=== PATIENT | female | born 1990 | race Caucasian/White ===

== ENCOUNTER 2020-11-02 16:15 | Emergency (ER) | payer MEDICAID ==
[~2020-11-02] VITALS: Ht 152.4 cm; Wt 70.3 kg
[2020-11-02 16:19] VITALS: BP 150/93
--- NOTE | 2020-11-02 16:20 | NUR ---
30Y F c/c new onset feeling dizzy, imbalanced and blurry vision earlier at work. Reports dizziness has resolved but blurry vision remains and "a little light-headed". Denies chest pain, n/v/d, flashing lights, floaters, painful eye movement, chest pain, SOB. Denies gestational HTN/DM. PMH: denies NKA RX: Folic and iron.
--- NOTE | 2020-11-02 16:51 | NUR ---
DR. REYES AT BEDSIDE EXAMINING PT
--- NOTE | 2020-11-02 17:06 | NUR ---
UA GIVEN TO COSMETOLOGY INSTRUCTOR
--- NOTE | 2020-11-02 17:08 | NUR ---
EKG AT BEDSIDE
[2020-11-02] MEDS ORDERED: DOPPLER MC ONE (17:12)
[2020-11-02 17:32] LABS: APPEARANCE,URINE CLEAR (CLEAR); BILIRUBIN,URINE NEGATIVE (NEGATIVE); BLOOD, URINE NEGATIVE (NEGATIVE); COLOR,URINE YELLOW (YELLOW); LEUKOCYTE ESTERASE ,URINE 2+ (NEGATIVE); NITRITE, URINE NEGATIVE (NEGATIVE); UGLUCOSE NEGATIVE (NEGATIVE)
[2020-11-02 17:32] LABS: BASOPHILS # (AUTO) 0.1 K/uL (0.00-0.22); BASOPHILS % (AUTO) 0.8 % (0.0-2.0); EOSINOPHILS # (AUTO) 0.1 K/uL (0-0.4); EOSINOPHILS % (AUTO) 0.7 % (0.0-4.0); HEMATOCRIT 33.3 % (36-48); HEMOGLOBIN 11.3 g/dL (12.0-16.0); LYMPHOCYTES # (AUTO) 2.1 K/uL (2.5-16.5); LYMPHOCYTES % (AUTO) 22.5 % (20.5-51.1); MEAN CORPUSCULAR HEMOGLOBIN 31 pg (27-31); MEAN CORPUSCULAR HGB CONC 34 g/dL (33-37); MEAN CORPUSCULAR VOLUME 90.9 fL (80-94); MONOCYTES # (AUTO) 0.6 K/uL (0.8-1.0); MONOCYTES % (AUTO) 6.3 % (1.7-9.3); NEUTROPHILS # (AUTO) 6.6 K/uL (1.8-7.7); NEUTROPHILS % (AUTO) 69.7 % (42.2-75.2); PLATELET COUNT (AUTO) 338 K/uL (140-450); RED BLOOD CELL COUNT(AUTO) 3.66 MIL/uL (4.20-5.40); WHITE BLOOD COUNT (AUTO) 9.5 K/uL (4.8-10.8)
[2020-11-02 17:49] LABS: ALBUMIN 2.9 g/dL (3.4-5.0); ANION GAP 11.2 (8-16); CARBON DIOXIDE 23.6 mmol/L (21-32); CREATININE 0.5 mg/dL (0.6-1.3); POTASSIUM 3.8 mmol/L (3.5-5.1); TOTAL BILIRUBIN 0.3 mg/dL (0.0-1.0)
[2020-11-02 17:53] LABS: PROTHROMBIN TIME 9.2 secs (10.8-13.4)
--- NOTE | 2020-11-02 18:00 | NUR ---
Pt comfortably lying on lowest locked bed x1 rail, VSS, even and unlabored breathing noted. Pulse ox and O2 monitored.
[2020-11-02 18:20] LABS: RBC,URINE 0-5 /HPF (0-5)
[2020-11-02] MEDS ORDERED: NITR100C7 PO (18:27)
[2020-11-02 18:31] VITALS: BP 114/77
--- NOTE | 2020-11-02 18:31 | NUR ---
Patient discharged with v/s stable. Written and verbal after care instructions given and explained. Patient verbalized understanding. Ambulatory with steady gait. All questions addressed prior to discharge. Advised to follow up with PMD.
== END 2020-11-02 18:31 | disposition home or self-care (01) ==
LOC: MED 16:15
DX: O26.892 Other specified pregnancy related conditions, second trimester (principal); O98.912 Unspecified maternal infectious and parasitic disease complicating pregnancy, second trimester; R82.71 Bacteriuria; R42 Dizziness and giddiness; H53.8 Other visual disturbances; Z3A.25 25 weeks gestation of pregnancy
CPT/HCPCS: 36415; 80053; 81001; 81025; 84550; 85025; 85610; 85730; 87086; 93005; 99284

== ENCOUNTER 2021-01-31 17:14 | Inpatient (IN) | payer MEDICAID ==
[~2021-01-31] VITALS: Ht 152.4 cm; Wt 77.6 kg
[~2021-01-31 17:14] MED LIST: NITR100C7 PO
[2021-01-31] MEDS ORDERED: PRETAB PO (17:32)
[2021-01-31] MEDS ORDERED: NALBUPHINE 10 MG/ML AMP IVP PRN (17:35)
[2021-01-31] MEDS ORDERED: LACTATED RINGERS 500 ML IV ONE (17:35)
[2021-01-31] MEDS ORDERED: PROMETHAZINE 25 MG/ML VIAL IVP PRN (17:35)
[2021-01-31 18:34] LABS: BASOPHILS # (AUTO) 0.1 K/uL (0.00-0.22); BASOPHILS % (AUTO) 0.6 % (0.0-2.0); EOSINOPHILS # (AUTO) 0.1 K/uL (0-0.4); EOSINOPHILS % (AUTO) 1.8 % (0.0-4.0); HEMOGLOBIN 12.4 g/dL (12.0-16.0); LYMPHOCYTES # (AUTO) 2.4 K/uL (2.5-16.5); LYMPHOCYTES % (AUTO) 29.4 % (20.5-51.1); MEAN CORPUSCULAR HEMOGLOBIN 32 pg (27-31); MEAN CORPUSCULAR HGB CONC 34 g/dL (33-37); MEAN CORPUSCULAR VOLUME 94.8 fL (80-94); MONOCYTES # (AUTO) 0.6 K/uL (0.8-1.0); MONOCYTES % (AUTO) 7.2 % (1.7-9.3); NEUTROPHILS # (AUTO) 5.1 K/uL (1.8-7.7); PLATELET COUNT (AUTO) 274 K/uL (140-450); RED CELL DISTRIBUTION WIDTH 15.3 % (11.6-13.7); WHITE BLOOD COUNT (AUTO) 8.3 K/uL (4.8-10.8)
[2021-01-31 18:42] LABS: BILIRUBIN,URINE NEGATIVE (NEGATIVE); BLOOD, URINE TRACE-I (NEGATIVE); LEUKOCYTE ESTERASE ,URINE 3+ (NEGATIVE); NITRITE, URINE NEGATIVE (NEGATIVE); UGLUCOSE NEGATIVE (NEGATIVE)
[2021-01-31 18:44] LABS: APPEARANCE,URINE HAZY (CLEAR); COLOR,URINE STRAW (YELLOW)
[2021-01-31 18:55] VITALS: BP 137/95
[2021-01-31 18:59] LABS: PROTHROMBIN TIME 8.8 secs (10.8-13.4)
[2021-01-31 19:02] LABS: ALBUMIN 2.8 g/dL (3.4-5.0); ANION GAP 15.9 (8-16); CARBON DIOXIDE 20.6 mmol/L (21-32); CREATININE 0.7 mg/dL (0.6-1.3); POTASSIUM 3.5 mmol/L (3.5-5.1); TOTAL BILIRUBIN 0.3 mg/dL (0.0-1.0)
[2021-01-31 19:21] LABS: URINE TOTAL PROTEIN 21.9 mg/dL (0-12)
[2021-01-31 19:32] LABS: WBC,URINE 16-25 (MOD) /HPF (0-5)
[2021-01-31] MEDS: LACTATED RINGERS 1,000 ML IV SCH (19:53)
[2021-01-31] MEDS ORDERED: MISOPROSTOL 25 MCG TAB VG PRN (19:55)
[2021-01-31] MEDS ORDERED: OXYTOCIN 20 UNITS in LACTATED RINGERS 1,000 ML IV SCH (19:55)
[2021-01-31] MEDS ORDERED: MISOPROSTOL 25 MCG TAB ONE (20:07)
[2021-02-01] MEDS: LACTATED RINGERS 1,000 ML IV SCH ×3 (03:47→12:26)
--- NOTE | 2021-02-01 08:31 | NUR ---
PATIENT HAS BEEN SCREENED AND CATEGORIZED LOW NUTRITION RISK. PATIENT WILL BE SEEN WITHIN 7 DAYS OF ADMISSION. 02/07/[address]
[2021-02-01] MEDS ORDERED: OXYTOCIN 20 UNITS/LR PREMIX 1,000 ML IV ONE (10:09)
[2021-02-01] MEDS ORDERED: ACETAMINOPHEN 325 MG TAB PO PRN (15:25)
[2021-02-01] MEDS ORDERED: ACETAMINOPHEN 325 MG TAB ONE (15:26)
[2021-02-01] MEDS ORDERED: AMPICILLIN 2,000 MG VIAL ONE (15:27)
[2021-02-01] MEDS ORDERED: AMPICILLIN 2,000 MG in NACL 0.9% MINI-BAG PLUS 100 ML IV SCH (16:00)
[2021-02-01] MEDS ORDERED: AMPICILLIN 1,000 MG in NACL 0.9% MINI-BAG PLUS 50 ML IV SCH (19:00)
[2021-02-01] MEDS ORDERED: HYDROcodone/APAP 5/325 MG 1 TAB TAB PO PRN (20:20)
[2021-02-01] MEDS ORDERED: TEMAZEPAM 15 MG CAP PO PRN (20:20)
[2021-02-01] MEDS ORDERED: oxyCODONE/APAP 5/325 MG 1 TAB TAB PO PRN (20:20)
[2021-02-01] MEDS ORDERED: BENZOCAINE/MENTHOL 20%-0.5% 60 GM CAN TP PRN (20:20)
[2021-02-01] MEDS ORDERED: OXYTOCIN 10 UNITS/ML VIAL IM PRN (20:20)
[2021-02-01] MEDS ORDERED: DOCUSATE SOD/SENNA 50/8.6 MG 1 TAB PO SCH (21:00)
[2021-02-02] MEDS: IBUPROFEN 800 MG TAB PO PRN ×2 (01:13→11:05)
[2021-02-02 08:49] LABS: HEMATOCRIT 31.6 % (36-48); HEMOGLOBIN 10.4 g/dL (12.0-16.0)
== END 2021-02-03 12:10 | disposition home or self-care (01) | DRG 560 ==
LOC: MFCC 17:14
PROVIDERS: ADMIT Obstetrics & Gynecology; ATTEND Obstetrics & Gynecology
PROC: 10E0XZZ Delivery of Products of Conception, External Approach (ICD-10-PCS; principal; 2021-02-01)
PROC: 3E0P7VZ Introduction of Hormone into Female Reproductive, Via Natural or Artificial Opening (ICD-10-PCS; 2021-02-01)
PROC: 0HQ9XZZ Repair Perineum Skin, External Approach (ICD-10-PCS; 2021-02-01)
PROC: 00HU33Z Insertion of Infusion Device into Spinal Canal, Percutaneous Approach (ICD-10-PCS; 2021-02-01)
PROC: 3E0R3BZ Introduction of Anesthetic Agent into Spinal Canal, Percutaneous Approach (ICD-10-PCS; 2021-02-01)
DX: O70.0 First degree perineal laceration during delivery (principal); R71.0 Precipitous drop in hematocrit; O14.04 Mild to moderate pre-eclampsia, complicating childbirth; O69.81X0 Labor and delivery complicated by cord around neck, without compression, not applicable or unspecified; Z20.822 Contact with and (suspected) exposure to COVID-19; Z37.0 Single live birth; Z3A.37 37 weeks gestation of pregnancy
CPT/HCPCS: 36415; 51702; 59200; 80053; 81001; 82570; 85018; 85025; 85384; 85610; 85730; 86592; 86886; 86900; 86901; 87086; J0290; J2300; J2550; J2590; J7120

== ENCOUNTER 2021-03-03 10:43 | Emergency (ER) | payer MEDICAID ==
[~2021-03-03] VITALS: Ht 152.4 cm; Wt 63.5 kg
[~2021-03-03 10:43] MED LIST changes: -NITR100C7 PO; +PRETAB PO
[2021-03-03 10:49] VITALS: BP 123/90
[2021-03-03] MEDS ORDERED: ATA25 PO (12:16)
[2021-03-03] MEDS ORDERED: HYD2.5O TP (12:16)
--- NOTE | 2021-03-03 12:30 | NUR ---
NO NEED NURSING INTERVENTIONS. SEEN & TREATED BY SERENE RECINOS.
--- NOTE | 2021-03-03 12:36 | NUR ---
Patient discharged with v/s stable. Written and verbal after care instructions given and explained. Patient alert, oriented and verbalized understanding of instructions. Ambulatory with steady gait. All questions addressed prior to discharge. ID band removed. Patient advised to follow up with PMD. Rx of ATARAX & HYDROCORTISONE given. Patient educated on indication of medication including possible reaction and side effects. Opportunity to ask questions provided and answered.
[2021-03-03 12:38] VITALS: BP 123/90
== END 2021-03-03 12:36 | disposition home or self-care (01) ==
LOC: MED 10:43
DX: R21 Rash and other nonspecific skin eruption (principal); Z79.899 Other long term (current) drug therapy; Z91.040 Latex allergy status
CPT/HCPCS: 99283